=== PATIENT | female | born 1960 | race Caucasian/White ===

== ENCOUNTER 2019-09-17 17:10 | Emergency (ER) | payer OTHER ==
[2019-09-17 17:35] VITALS: BP 133/70; PULSE 82; TEMP 98.7; BMI 36.6
[2019-09-17] MEDS ORDERED: DIPHTH,PERTUSS(ACELL),TET 0.5 ML DISP.SYRIN IM ONE ×2 (18:20→18:22)
--- NOTE | 2019-09-17 18:20 | PDOC ---
History of Present Illness - General Chief Complaint: Laceration Stated Complaint: LEFT INDEX FINGER LACERATION Time Seen by Provider: 09/17/19 17:29 - History of Present Illness Initial Comments: 09/18/19 08:43 Chief complaint: Laceration HPI: Patient cut her left index finger on a kitchen knife. Bleeding controlled. No pain. No distal numbness tingling limited range of motion or weakness. Review of systems: As above, otherwise negative Past medical history: Healthy female, borderline elevated cholesterol but on no medical therapy other than diet Social/family history reviewed and noncontributory Physical exam: Alert cheerful and cooperative no acute distress Afebrile, vital signs normal 2 cm laceration left index finger, over the dorsal medial aspect of the proximal phalanx. Superficial. Involving epidermis only. No deep punctures. No deep structures involved. Capillary refill intact. No distal sensory deficits. Full flexion and extension of PIP and DIP joints against resistance. Impression: Superficial finger laceration Plan: Suture repair. See note. Past History - Past Medical History Allergies/Adverse Reactions: Allergies Allergy/AdvReac Type Severity Reaction Status Date / Time No Known Allergies Allergy Verified 09/17/19 17:31 Home Medications: Ambulatory Orders Atorvastatin Ca [Lipitor] 10 mg PO Q48H 09/17/19 Paroxetine HCl [Paxil] 20 mg PO DAILY 09/17/19 COPD: No Hypercholesterolemia: Yes - Psycho Social/Smoking Cessation Hx Smoking History: Never smoked Hx Alcohol Use: No Drug/Substance Use Hx: No *Physical Exam - Vital Signs Last Vital Signs Temp Pulse Resp BP Pulse Ox 98.7 F 82 15 133/70 97 09/17/19 17:11 09/17/19 17:11 09/17/19 17:11 09/17/19 17:11 09/17/19 17:11 Medical Decision Making - Medical Decision Making 09/18/19 08:45 Procedure note: Repair of laceration Local anesthesia 1% lidocaine plain with good result Prepped with Betadine. Scrubbed and irrigated with normal saline. Explored. Superficial. Involves only epidermis. No deep structures involved. No punctures. Hemostasis with pressure. Closed with 5-0 nylon interrupted skin sutures with good edge approximation. Bacitracin. Dressing. Wound care instructions to patient. Recheck immediately if signs of infection. Otherwise suture removal in 7 to 10 days. Patient tolerated the procedure well. Fully ambulatory and in no pain or other distress at discharge with family to follow-up as directed Discharge - Discharge Information Problems reviewed: Yes Clinical Impression/Diagnosis: Laceration of finger Condition: Improved Disposition: HOME - Admission No - Follow up/Referral Referrals: Jonas Reed MD [Primary Care Provider] - - Patient Discharge Instructions Patient Printed Discharge Instructions: DI for Laceration Repair Additional Instructions: Keep clean and dry. Return to ER immediately if there is sign of infection. Otherwise return for suture removal 7 to 10 days. Redress daily with antibiotic ointment and keep covered. - Post Discharge Activity
== END 2019-09-17 18:30 | disposition home or self-care (01) ==
LOC: FER 17:10
PROC: 0HQGXZZ Repair Left Hand Skin, External Approach (ICD-10-PCS; principal; 2019-09-17)
PROC: 3E0234Z Introduction of Serum, Toxoid and Vaccine into Muscle, Percutaneous Approach (ICD-10-PCS; 2019-09-17)
DX: S61.211A Laceration without foreign body of left index finger without damage to nail, initial encounter (principal); E78.00 Pure hypercholesterolemia, unspecified; X58.XXXA Exposure to other specified factors, initial encounter; Y93.89 Activity, other specified; Y92.89 Other specified places as the place of occurrence of the external cause
CPT/HCPCS: 12001-25; 90471; 90715; 99283-25

== ENCOUNTER 2019-09-27 16:35 | Emergency (ER) | payer OTHER ==
--- NOTE | 2019-09-27 16:59 | PDOC ---
Suture Removal/Wound Check HPI - History of Present Illness Chief Complaint: Suture/Staple Removal(Here) Stated Complaint: SUTURE REMOVAL Time Seen by Provider: 09/27/19 16:41 History Source: Yes: Patient Exam Limitations: Yes: No Limitations - Onset of Previous Treatment Comment:: 09/27/19 17:00 59 YOF Presenting to the ED with suture removal to left index finger. s/p injury on 09/17/19 with placement of 3 sutures. No fever or chills, redness, pain, swelling or discharge/malodor. Keeping the wound clean. Past History - Past Medical History Allergies/Adverse Reactions: Allergies Allergy/AdvReac Type Severity Reaction Status Date / Time No Known Allergies Allergy Verified 09/27/19 16:37 Home Medications: Ambulatory Orders Atorvastatin Ca [Lipitor] 10 mg PO Q48H 09/17/19 Paroxetine HCl [Paxil] 20 mg PO DAILY 09/17/19 COPD: No Hypercholesterolemia: Yes - Psycho Social/Smoking Cessation Hx Smoking History: Never smoked Hx Alcohol Use: No Drug/Substance Use Hx: No *Review of Systems - Review of Systems Able to Perform ROS?: Yes 09/27/19 17:03 Review of Systems Constitutional: no fevers or chills. MUSCULOSKELETAL: No joint pain and swelling. No muscle pain/arthralgias. Back: no back pain SKIN: no redness or skin changes, no discharge, no rash. No wounds. +healed laceration. Hematologic: no easy bruising/bleeding. NEUROLOGIC: No weakness, numbness or tingling. Allergic/Immunologic: no allergies All other systems reviewed and negative, or as documented in HPI. *Physical Exam - Physical Exam 09/27/19 17:03 physical exam: General: NAD, well appearing Vascular: 2+ radialis pulses symmetric and equal. Neuro: distal education supervisor strength 5/5. sensation grossly intact in median/radial/ulnar distribution. MSK: soft compartments, Cap refill <2 sec. 2+ radialis pulses bilaterally and symmetric. FDP/FDS intact. no joint tenderness. FROM. Skin: color normal color, warm and well perfused. healed laceration to the palmar aspect of left index finger b/w mcp and PIP, [address], well approximated. nonbleeding, nontender. Medical Decision Making - Medical Decision Making 09/27/19 17:04 Verbal consent was obtained. Wound well approximated, no erythema, induration, or discharge noted. 3 sutures completely removed in a sterile fashion. Patient tolerated procedure well, no complications. Patient advised to look for and return for any signs of infection such as redness, swelling, discharge, or worsening pain. 09/27/19 17:05 Discharge - Discharge Information Problems reviewed: Yes Clinical Impression/Diagnosis: Visit for suture removal Condition: Good Disposition: HOME - Admission No - Follow up/Referral - Patient Discharge Instructions Patient Printed Discharge Instructions: DI for Suture Removal Additional Instructions: infection such as redness, swelling, discharge, or worsening pain. AFTER the stitches are removed: Clean your wound as directed. Carefully wash your wound with soap and water. Pat the area dry with a clean towel. Protect your wound. Your wound can swell, bleed, or split open if it is stretched or bumped. You may need to wear a bandage that supports your wound until it is completely healed. Minimize your scar. Use sunblock if your wound is exposed to the sun. Apply it every day after the stitches are removed. This will help prevent skin discoloration. - Post Discharge Activity
[2019-09-27 17:17] VITALS: BP 120/71; PULSE 80; TEMP 98.2; BMI 28.3
== END 2019-09-27 17:17 | disposition home or self-care (01) ==
LOC: FER 16:35
DX: Z48.02 Encounter for removal of sutures (principal)
CPT/HCPCS: 99281-25